=== PATIENT | male | born 1955 | race Caucasian/White ===

== ENCOUNTER 2017-02-27 14:51 | Emergency (ER) | payer OTHER ==
[2017-02-27 14:58] VITALS: RESP 18; TEMP 97.8
[2017-02-27] MEDS ORDERED: SODIUM CHLORIDE 0.9% 1,000 ML IV ONE (15:08)
[2017-02-27] MEDS ORDERED: RX INFO: IV CONTRAST WAS GIVEN 1 EACH MISC MISCELLANE PRN (15:10)
[2017-02-27] MEDS ORDERED: DIPH,PERTUS(ACELL)TETVAC-LF 0.5 ML VIAL IM ONE (15:12)
--- NOTE | 2017-02-27 15:15 | ED ---
Fall HPI <Jaqueline Camarillo - Last Filed: 02/27/17 18:04> - General Source: patient Mode of arrival: wheelchair - History of Present Illness MD Complaint: fall <Elbert Bennett - Last Filed: 02/27/17 18:21> - General Chief Complaint: Fall Stated Complaint: FALL/6-8 FT Time Seen by Provider: 02/27/17 15:00 - History of Present Illness Initial Comments: This is a 61-year-old male who states he was trying to move a ladder from the ears family fell backwards onto the ground 6-8 feet. He states he landed flat on his back he does sure whether get knocked out he did sustain abrasions with forehead he complains of pain to his mid back for head and to his left handed. He did sustain some type of laceration of his left hand. Able walk out from where he fell. He complains of no pain below his waist. He has any abdominal pain. No fevers chills nausea vomiting sweats he states the pain is about 8/10 in severity. Better than when he arrived. (Elbert Bennett) - Related Data Previous Rx's Medication Instructions Recorded Cyclobenzaprine [Flexeril] 10 mg PO TID #14 tab 02/27/17 Ibuprofen 800 mg PO Q6HR PRN #20 tablet 02/27/17 Allergies Allergy/AdvReac Type Severity Reaction Status Date / Time morphine Allergy Rash/Hives Verified 02/27/17 14:58 Review of Systems ROS Other: All systems not noted in ROS Statement are negative. <Jaqueline Camarillo - Last Filed: 02/27/17 18:04> ROS Other: All systems not noted in ROS Statement are negative. <Elbert Bennett - Last Filed: 02/27/17 18:21> ROS Statement: Those systems with pertinent positive or pertinent negative responses have been documented in the HPI. Past Medical History Past Medical History: Diabetes Mellitus, Hyperlipidemia, Hypertension History of Any Multi-Drug Resistant Organisms: None Reported Past Surgical History: Appendectomy, Orthopedic Surgery Additional Past Surgical History / Comment(s): shoulder, hemangioma Past Psychological History: Anxiety Smoking Status: Never smoker Past Alcohol Use History: Daily Past Drug Use History: Marijuana <Elbert Bennett - Last Filed: 02/27/17 18:21> General Exam <Jaqueline Camarillo - Last Filed: 02/27/17 18:04> Limitations: no limitations General appearance: alert, anxious, in distress Head exam: Present: normocephalic, other (Abrasion seen over the right mid forehead. No step-off no crepitation) Eye exam: Present: normal appearance, PERRL, EOMI. Absent: scleral icterus, conjunctival injection, periorbital swelling ENT exam: Present: normal exam, mucous membranes moist Neck exam: Present: normal inspection. Absent: tenderness, meningismus, lymphadenopathy Respiratory exam: Present: chest wall tenderness, decreased breath sounds Cardiovascular Exam: Present: normal rhythm, tachycardia, normal heart sounds. Absent: systolic murmur, diastolic murmur, rubs, gallop, clicks GI/Abdominal exam: Present: soft, normal bowel sounds. Absent: distended, tenderness, guarding, rebound, rigid Rectal exam: Present: deferred Extremities exam: Present: tenderness, normal capillary refill, other (Edema and tenderness over the left thumb with laceration seen to the palmar aspect of the metacarpal phalangeal joint. No active bleeding. No foreign body.) Back exam: Present: normal inspection, tenderness, CVA tenderness (R), CVA tenderness (L), muscle spasm, paraspinal tenderness. Absent: vertebral tenderness Neurological exam: Present: alert, oriented X3, CN II-XII intact Psychiatric exam: Present: normal affect, normal mood Skin exam: Present: warm, dry, normal color. Absent: intact <Elbert Bennett - Last Filed: 02/27/17 18:21> - General Exam Comments Initial Comments: This is a well-developed well-nourished awake alert oriented 3 male he does have a [place] Coma Scale of 15 (Elbert Bennett) Procedures <Jaqueline Camarillo - Last Filed: 02/27/17 18:04> <Elbert Bennett - Last Filed: 02/27/17 18:21> - Procedures Initial comment: consent obtained. The skin was anesthetized with 1% lidocaine. The laceration was then cleansed with Betadine and irrigated with normal saline. The wound was inspected, and there was no evidence of injury to deep structures. No foreign body was noted in the wound. A total of 4 skin sutures were placed utilizing 5- 0 nylon to a 4 cm laceration at the base of the left thumb (Jaqueline Camarillo) Medical Decision Making - Lab Data Result diagrams: 02/27/17 15:33 02/27/17 15:33 <Jaqueline Camarillo - Last Filed: 02/27/17 18:04> - Lab Data Result diagrams: 02/27/17 15:33 02/27/17 15:33 - Radiology Data Radiology results: report reviewed (I did review the imaging and reports no acute findings. Except for evidence a laceration to left hand), image reviewed <Elbert Bennett - Last Filed: 02/27/17 18:21> - Medical Decision Making I did discuss findings with the patient family members. Patient be discharged is follow-up with his doctor return when necessary (Elbert Bennett) - Lab Data Lab Results 02/27/17 02/27/17 02/27/17 Range/Units 15:33 15:33 15:33 WBC 11.3 H (3.8-10.6) k/uL RBC 5.06 (4.30-5.90) m/uL Hgb 16.0 (13.0-17.5) gm/dL Hct 44.8 (39.0-53.0) % MCV 88.5 (80.0-100.0) fL MCH 31.5 (25.0-35.0) pg MCHC 35.6 (31.0-37.0) g/dL RDW 13.1 (11.5-15.5) % Plt Count 188 (150-450) k/uL Neutrophils % 85 % Lymphocytes % 9 % Monocytes % 4 % Eosinophils % 1 % Basophils % 0 % Neutrophils # 9.6 H (1.3-7.7) k/uL Lymphocytes # 1.0 (1.0-4.8) k/uL Monocytes # 0.4 (0-1.0) k/uL Eosinophils # 0.1 (0-0.7) k/uL Basophils # 0.0 (0-0.2) k/uL PT 10.5 (9.0-12.0) sec INR 1.0 (<1.2) APTT 23.5 (22.0-30.0) sec Sodium 141 (137-145) mmol/L Potassium 4.4 (3.5-5.1) mmol/L Chloride 107 (98-107) mmol/L Carbon Dioxide 22 (22-30) mmol/L Anion Gap 12 mmol/L BUN 20 (9-20) mg/dL Creatinine 1.14 (0.66-1.25) mg/dL Est GFR (MDRD) Af Amer >60 (>60 ml/min/1.73 sqM) Est GFR (MDRD) Non-Af >60 (>60 ml/min/1.73 sqM) Glucose 157 H (74-99) mg/dL Calcium 9.6 (8.4-10.2) mg/dL Total Bilirubin 0.7 (0.2-1.3) mg/dL AST 31 (17-59) U/L ALT 53 (21-72) U/L Alkaline Phosphatase 78 (38-126) U/L Total Protein 7.3 (6.3-8.2) g/dL Albumin 4.4 (3.5-5.0) g/dL Disposition <Jaqueline Camarillo - Last Filed: 02/27/17 18:04> Decision Time: 17:45 <Elbert Bennett - Last Filed: 02/27/17 18:21> Clinical Impression: Fall, Strain of thoracic region, Laceration of left hand, Forehead abrasion, Strain of left hand Disposition: HOME SELF-CARE Condition: Good Instructions: Abrasion (ED), Fall Prevention for Older Adults (ED), Laceration (ED), Care For Your Stitches (ED), Musculoskeletal Pain (ED) Additional Instructions: Off work 2 days Prescriptions: Cyclobenzaprine [Flexeril] 10 mg PO TID #14 tab Ibuprofen 800 mg PO Q6HR PRN #20 tablet PRN Reason: Pain Referrals: None,Stated [Primary Care Provider] - 1-2 days
[2017-02-27] MEDS ORDERED: ACETAMINOPHEN IV (For NPO) 1,000 MG in EMPTY BAG 1 BAG IVPB STA (15:42)
[2017-02-27 15:48] LABS: Basophils % (A) 0 %; CH 30.8; CHCM 34.9; Eosinophils # (A) 0.1 k/uL (0-0.7); Eosinophils % (A) 1 %; HCT 44.8 % (39.0-53.0); HDW 2.59; Luc # (Auto) 0.12; Luc % (Auto) 1; Lymphocytes % (A) 9 %; MCH 31.5 pg (25.0-35.0); MCHC 35.6 g/dL (31.0-37.0); MCV 88.5 fL (80.0-100.0); Mean Platelet Volume 6.5; Monocytes # (A) 0.4 k/uL (0-1.0); Monocytes % (A) 4 %; Neutrophils # (A) 9.6 k/uL (1.3-7.7); Neutrophils % (A) 85 %; RBC 5.06 m/uL (4.30-5.90); RDW 13.1 % (11.5-15.5); WBC 11.3 k/uL (3.8-10.6); WBC (Perox) 11.24
[2017-02-27 16:00] LABS: ALT 53 U/L (21-72); AST 31 U/L (17-59); Alkaline Phosphatase 78 U/L (38-126); Anion Gap 12 mmol/L; Blood Urea Nitrogen 20 mg/dL (9-20); Calcium 9.6 mg/dL (8.4-10.2); Carbon Dioxide 22 mmol/L (22-30); Chloride 107 mmol/L (98-107); Glucose 157 mg/dL (74-99); Non-African American GFR(MDRD) >60 (>60 ml/min/1.73 sqM); Potassium 4.4 mmol/L (3.5-5.1); Sodium 141 mmol/L (137-145); Total Bilirubin 0.7 mg/dL (0.2-1.3); Total Protein 7.3 g/dL (6.3-8.2)
[2017-02-27 16:21] LABS: Partial Thromboplastin Time 23.5 sec (22.0-30.0); Prothrombin Time 10.5 sec (9.0-12.0)
--- NOTE | 2017-02-27 16:28 | XR ---
EXAMINATION TYPE: XR hand complete LT DATE OF EXAM: 02/27/2017 CLINICAL HISTORY: Generalized left hand pain after laceration injury TECHNIQUE: Frontal, lateral and oblique images of the left hand are obtained. COMPARISON: None. FINDINGS: There is no acute fracture/dislocation evident in the left hand. The joint spaces in the l eft hand appear within normal limits. Lucency consistent with laceration injury between first and sec ond metacarpals is present with soft tissue swelling, no radiodense foreign body is clearly identifie d. IMPRESSION: There is no acute fracture or dislocation in the left hand. Soft tissue laceration injur y noted.
--- NOTE | 2017-02-27 16:54 | CT ---
EXAMINATION TYPE: CT brain vera lawler con DATE OF EXAM: 02/27/2017 COMPARISON: CT brain February 22, 2010. HISTORY: Patient complains of frontal head laceration after fall of 6-8 feet. Headache and neck pain after injury. CT DLP: 1370.1 mGycm. Automated Exposure Control for Dose Reduction was Utilized. TECHNIQUE: CT scan of the head and cervical spine are performed without contrast. FINDINGS: There is no acute intracranial hemorrhage, mass effect, or midline shift identified. The ventricles and sulci are within normal limits in size. The globes are intact and the visualized sin uses are clear. The calvarium is intact. There is tiny acute right frontal supraorbital hematoma near axial image 17 noted. Cervical spine is visualized in its entirety from C1 through upper thoracic levels and demonstrates s traightened alignment without evidence of acute fracture or dislocation. Prevertebral soft tissue ap pears within normal limits. The C1-C2 articulation is within normal limits on the coronal images. Vertebral body heights are maintained. There is moderate to severe disc space narrowing with mild to moderate spurring at C5-C6 level. There is moderate disc space narrowing and mild to moderate spurrin g at C6-C7 level. Posterior spur disc complex effaces anterior thecal sac at C5-C6 level on sagittal images. Review of axial images shows right-sided uncovertebral facet degenerative changes and marginal spur d isc complex effacing anterolateral thecal sac and causing asymmetric moderate right-sided neural fora froilan narrowing at C3-C4 level on axial image 48. There is asymmetric mild to moderate right-sided neural foraminal narrowing due to uncovertebral face t arthropathy at C4-C5 level on axial image 56. Posterior spur disc complex effaces anterior thecal sac and causes advanced right and moderate left-s ided neural foraminal narrowing at C5-C6 level. Thyroid gland is felt within normal limits. Visualized lung apices are clear.. IMPRESSION: 1. There is no acute fracture or dislocation evident in the cervical spine. 2. No acute intracranial hemorrhage or midline shift is seen. Tiny right frontal acute scalp hematoma noted.
--- NOTE | 2017-02-27 16:58 | CT ---
EXAMINATION TYPE: CT ChestAbdPelvis w con DATE OF EXAM: 02/27/2017 COMPARISON: NONE HISTORY: Patient complains of back pain after fall of 6-[address] DLP: 1701.5 mGycm. Automated Exposure Control for Dose Reduction was Utilized. CONTRAST: CT scan of the thorax, abdomen and pelvis is performed with IV Contrast, patient injected with 100 mL of Omnipaque 300. Trauma protocol. FINDINGS: LUNGS: The lungs are grossly clear, there is no concerning parenchymal mass or nodule identified. T here is no pleural effusion or pneumothorax seen. The tracheobronchial tree is patent. MEDIASTINUM: There are no greater than 1 cm hilar or mediastinal lymph nodes. No cardiomegaly or pe ricardial effusion is seen. Coronary artery calcification is present which is noted marker for coron althea artery disease. OTHER: No additional significant abnormality is seen. LIVER/GB: No significant abnormality is appreciated. PANCREAS: No significant abnormality is seen. SPLEEN: No significant abnormality is seen. ADRENALS: No significant abnormality is seen. KIDNEYS: No significant abnormality is seen. BOWEL: A few diverticula are incidentally seen scattered throughout the colon. There is mild wall thi ckening of the transverse colon from hepatic flexure through junction of mid to distal aspect left of midline. A colitis cannot be entirely excluded though finding is likely product of poor distention. GENITAL ORGANS: No gross abnormality seen. LYMPH NODES: No greater than 1cm abdominal or pelvic lymph nodes are appreciated. OSSEOUS STRUCTURES: There is prominent multilevel spurring in the mid to lower thoracic spine. There is disc space narrowing at lumbosacral junction. OTHER: No significant additional abnormality is seen. IMPRESSION: No acute osseous fracture, abnormal fluid collection, or evidence of solid organ injury i n the thorax, abdomen, or pelvis. No acute posttraumatic finding identified.
[2017-02-27 18:36] VITALS: BP 154/97; PULSE 97
--- NOTE | 2017-03-02 03:30 | CDI ---
Documentation Clarification OP Dear Elbert Archibald Please do addendum to ED report for missing NS stop time. Thank you, [place] Police Commissioner If you have any questions, please contact Master Dyer at [phone] [facility]
== END 2017-02-27 18:46 | disposition home or self-care (01) ==
LOC: EC 14:51
DX: S61.012A Laceration without foreign body of left thumb without damage to nail, initial encounter (principal); S29.012A Strain of muscle and tendon of back wall of thorax, initial encounter; S66.912A Strain of unspecified muscle, fascia and tendon at wrist and hand level, left hand, initial encounter; S00.81XA Abrasion of other part of head, initial encounter; Z88.5 Allergy status to narcotic agent; Z23 Encounter for immunization; W11.XXXA Fall on and from ladder, initial encounter; Y93.89 Activity, other specified
CPT/HCPCS: 36415; 80053; 85025; 85610; 85730; 73130; 72125; 70450; 71260; 74177; 90715; 99284; 12002; 96374; 96372; Q9967; J0131

== ENCOUNTER 2018-03-02 07:11 | Day surgery (SDC) | payer BC, OTHER ==
[2018-02-24 11:52] VITALS: BMI 34.5
[~2018-03-02 07:11] MED LIST: LACTATED RINGERS 1,000 ML IV SCH; LIDOCAINE 1% 20 ML VIAL (10MG/ML) FOR IV START INTRADERMA PRN
[2018-03-02 07:46] VITALS: TEMP 98.1
[2018-03-02 07:54] LABS: Glucose,Whole Blood 106 mg/dL (75-99)
[2018-03-02] MEDS ORDERED: PROPOFOL 10 MG/ML 20 ML VIAL IV ONE (08:19)
--- NOTE | 2018-03-02 08:44 | P.PCN ---
Date of Procedure: 03/02/18 Procedure(s) Performed: BRIEF HISTORY: Patient is a 62-year-old pleasant male, scheduled for an elective colonoscopy as a part of value should of prior history of colon polyps. Last colonoscopy was 6 years ago. PROCEDURE PERFORMED: Colonoscopy. PREOPERATIVE DIAGNOSIS: History of colon polyps. IV sedation per Anesthesia. PROCEDURE: After informed consent was obtained, the patient, was brought into the endoscopy unit. IV sedation was administered by Anesthesia under continuous monitoring. Digital rectal examination was normal. Initially the Olympus CF- 160 flexible video colonoscope was then inserted in the rectum, gradually advanced into the cecum without any difficulty. Careful examination was performed as the scope was gradually being withdrawn. Ileocecal valve and the appendiceal orifice were visualized and appeared normal. Prep was excellent. Mucosa of the cecum, ascending colon, transverse colon, descending colon, sigmoid colon, and rectum appeared normal. Retroflexion was performed in the rectum and no lesions were seen. The patient tolerated the procedure well. IMPRESSION: Normal-appearing colon from rectum to cecum with no evidence of colorectal neoplasia. Scattered sigmoid diverticulosis. RECOMMENDATIONS: Findings of this examination were discussed with the patient as well as his family. He was advised to have a repeat surveillance colonoscopy in 5 years.
[2018-03-02 08:47] VITALS: RESP 18
[2018-03-02 09:07] VITALS: BP 114/73; PULSE 62
== END 2018-03-02 09:27 | disposition home or self-care (01) ==
LOC: ORWHC2ENDO 07:11
PROVIDERS: ATTEND Internal Medicine Gastroenterology
DX: Z12.11 Encounter for screening for malignant neoplasm of colon (principal); K57.30 Diverticulosis of large intestine without perforation or abscess without bleeding; Z86.010 Personal history of colon polyps; I10 Essential (primary) hypertension; E78.5 Hyperlipidemia, unspecified; E11.9 Type 2 diabetes mellitus without complications; Z79.84 Long term (current) use of oral hypoglycemic drugs; Z79.899 Other long term (current) drug therapy; Z88.5 Allergy status to narcotic agent
CPT/HCPCS: J2704; G0105; 45378

== ENCOUNTER → 2023-06-23 | Outpatient (CLI) | payer MEDICARE ==
--- NOTE | 2023-06-23 11:39 | US ---
EXAMINATION TYPE: US venous doppler duplex LE RT DATE OF EXAM: 06/23/2023 11:13 AM COMPARISON: NONE CLINICAL INDICATION: Male, 67 years old with history of R22.41 RLE MASS AND LUMP, RIGHT LOWER LIMB; d iscoloration and pain on medial right knee x 1 or 2 days, no h/o dvt, no swelling SIDE PERFORMED: Right TECHNIQUE: The lower extremity deep venous system is examined utilizing real time linear array sonog aman with graded compression, doppler sonography and color-flow sonography. VESSELS IMAGED: Common Femoral Vein Deep Femoral Vein Greater Saphenous Vein * Femoral Vein Popliteal Vein Small Saphenous Vein * Proximal Calf Veins (* superficial vessels) Right Leg: Negative for DVT IMPRESSION: Grayscale, color doppler, spectral doppler imaging performed of the deep veins of the lo wer extremities. There is normal flow, compressibility, vascular waveforms.
== END | disposition home or self-care (01) ==
LOC: RADUSWWP 10:49
PROVIDERS: ATTEND Family Medicine
DX: M25.561 Pain in right knee (principal); R22.41 Localized swelling, mass and lump, right lower limb

== ENCOUNTER 2024-03-10 07:57 | Day surgery (SDC) | payer MEDICARE ==
[2024-03-10] MEDS: IV FLUID CONTINUATION 1,000 ML IV ONE (08:20)
[2024-03-10 08:27] VITALS: TEMP 97
[2024-03-10] MEDS: LACTATED RINGERS 1,000 ML IV SCH (08:35)
[2024-03-10 08:45] LABS: Glucose,Whole Blood 139 mg/dL (70-110)
[2024-03-10] MEDS ORDERED: PROPOFOL 10 MG/ML 20 ML VIAL IV ONE (08:46)
[2024-03-10] MEDS ORDERED: LIDOCAINE 1% INJ 10MG/ML (20 ML MDV) ONE (08:46)
--- NOTE | 2024-03-10 09:06 | P.PCN ---
Date of Procedure: 03/10/24 Procedure(s) Performed: BRIEF HISTORY: Patient is a 68-year-old pleasant white male scheduled for an elective colonoscopy as a part of screening for colon cancer and family history of colon cancer. His mother was diagnosed with colon cancer at age 60. PROCEDURE PERFORMED: Colonoscopy. PREOPERATIVE DIAGNOSIS: Screening for colon cancer and family history of colon cancer. IV sedation per Anesthesia. PROCEDURE: After informed consent was obtained, the patient, was brought into the endoscopy unit. IV sedation was administered by Anesthesia under continuous monitoring. Digital rectal examination was normal. Initially the Olympus CF-160 flexible video colonoscope was then inserted in the rectum, gradually advanced into the cecum without any difficulty. Careful examination was performed as the scope was gradually being withdrawn. Ileocecal valve and the appendiceal orifice were visualized and appeared normal. Prep was excellent. Mucosa of the cecum, ascending colon, transverse colon, descending colon, sigmoid colon, and rectum appeared normal. Scattered sigmoid diverticulosis retroflexion was performed in the rectum and no lesions were seen. The patient tolerated the procedure well. IMPRESSION: Normal-appearing colon from rectum to cecum with no evidence of colorectal neoplasia. Scattered sigmoid diverticulosis. RECOMMENDATIONS: Findings of this examination were discussed with the patient as well as his family. He was advised to have repeat screening colonoscopy in 5 years because of a family history of colon cancer
[2024-03-10 09:24] VITALS: BP 147/66; PULSE 82; RESP 15
== END 2024-03-10 09:38 | disposition home or self-care (01) ==
LOC: ORWHC2ENDO 07:57
PROVIDERS: ATTEND Internal Medicine Gastroenterology
DX: Z12.11 Encounter for screening for malignant neoplasm of colon (principal); K57.30 Diverticulosis of large intestine without perforation or abscess without bleeding; I10 Essential (primary) hypertension; E11.9 Type 2 diabetes mellitus without complications; K21.9 Gastro-esophageal reflux disease without esophagitis; G40.909 Epilepsy, unspecified, not intractable, without status epilepticus; Z79.82 Long term (current) use of aspirin; Z80.0 Family history of malignant neoplasm of digestive organs; Z86.010 Personal history of colon polyps; Z79.84 Long term (current) use of oral hypoglycemic drugs
CPT/HCPCS: 45378; J2001; J2704